=== PATIENT | male | born 1940 | race Caucasian/White ===

== ENCOUNTER 2017-12-06 08:53 | Inpatient (IN) | payer OTHER, MEDICARE ==
[~2017-12-06] VITALS: Ht 170.2 cm; Wt 96.1 kg
[~2017-12-06 08:53] MED LIST: ADULT LOW DOSE81 M1 PO; GLUCOPHAGE XR,500 MG PO; LOVASTATIN40 MG PO; MOVE FREE1 CAPSULE PO; OMEPRAZOLE40 M1 PO; PAIN RELIEF EX500 MG PO; PERCOCET 5/31 TABLET PO; ZESTORETIC,P1 TABLE1 PO
[2017-12-06 09:55] LABS: HEMATOCRIT 38.5 % (38.0-50.0); HEMOGLOBIN 13.3 G/DL (12.5-16.6); MCH 31.8 PG (29.0-34.0); MCHC 34.5 G/DL (30.0-36.0); MCV 92.1 FL (86-99); PLATELET COUNT 173 K/uL (156-360); RBC DIS.WIDTH-CV 12.5 % (11.8-14.6); RBC DIS.WIDTH-SD 42.2 % (39-53); RED BLOOD COUNT 4.18 M/uL (4.00-5.50); WHITE BLOOD COUNT 9.9 K/uL (4.1-10.2)
[2017-12-06 10:04] LABS: CHLORIDE 98 mEq/L (99-109); POTASSIUM 3.8 mEq/L (3.7-5.4)
[2017-12-06 10:05] LABS: SODIUM 137 mEq/L (136-147)
[2017-12-06 10:07] LABS: GLUCOSE 198 mg/dL (70-99); TOTAL PROTEIN 7.3 g/dL (6.4-8.3)
[2017-12-06 10:09] LABS: TOTAL BILIRUBIN 1.1 mg/dL (0.0-1.0)
[2017-12-06 10:10] LABS: ALKALINE PHOSPHATASE 50 IU/L (3-129); CREATININE 1.7 mg/dL (0.6-1.3); GFR ESTIMATE (CALCULATED) 42 mL/min/ (58.99-99999)
[2017-12-06 10:12] LABS: AST (GOT) 15 IU/L (2-34); UREA NITROGEN (BUN) 24 mg/dL (9-23)
[2017-12-06 10:13] LABS: ALT (GPT) 25 IU/L (3-49)
[2017-12-06 10:17] LABS: TROP-I INTERPRETATION NEGATIVE; TROPONIN-I < 0.01 ng/mL (0.0-0.30)
[2017-12-06] MEDS ORDERED: ZESTORETIC 20-1 EAC1 PO (14:52)
[2017-12-06] MEDS ORDERED: AMARYL4 MG PO (14:53)
[2017-12-06] MEDS ORDERED: B-COMPLEX-VITA1 EACH PO (14:53)
[2017-12-06] MEDS ORDERED: GLUCOSAMINE-CH1 EAC7 PO (14:56)
[2017-12-06 16:14] LABS: APPEARANCE CLEAR ((CLEAR)); BILIRUBIN NEGATIVE; BLOOD SMALL; COLOR YELLOW ((YELLOW)); GLUCOSE (STRIP) NEGATIVE; KETONES NEGATIVE; LEUKOCYTES NEGATIVE; NITRITE NEGATIVE; PROTEIN (STRIP) 30; SPECIFIC GRAVITY 1.014 (1.000-1.030); UROBILINOGEN 0.2 MG/DL (0.2-1.0)
[2017-12-06 16:17] LABS: BACTERIA RARE /HPF; EPITHELIAL CELLS RARE /HPF; MUCUS TRACE /LPF; RED BLOOD CELLS 0-5 /HPF (0-5); UCUL ADDED? NO; WHITE BLOOD CELLS 0-5 /HPF (0-5)
[2017-12-06 16:57] VITALS: BP 145/58
[2017-12-06 19:50] VITALS: BP 126/58
[2017-12-07 01:00] VITALS: BP 143/67
[2017-12-07 03:51] VITALS: BP 132/65
[2017-12-07 06:39] LABS: CHLORIDE 99 MEQ/L (99-109); GLUCOSE 127 mg/dL (70-99); POTASSIUM 3.8 MEQ/L (3.7-5.4); SODIUM 138 MEQ/L (136-147); UREA NITROGEN (BUN) 16 mg/dL (9-23)
[2017-12-07 06:45] LABS: BASOPHIL (%) 0.1 % (0-1); CREATININE 1.2 MG/DL (0.6-1.3); EOSINOPHIL (%) 0.1 % (0-5); HEMATOCRIT 31.4 % (38.0-50.0); IMMATURE GRANULOCYTE (%) 0.4 % (0.0-0.7); LYMPHOCYTE (%) 16.6 % (15-42); LYMPHOCYTE COUNT 1.3 K/uL (1.0-2.8); MCH 31.8 PG (29.0-34.0); MCHC 34.1 G/DL (30.0-36.0); MCV 93.2 FL (86-99); MONOCYTE (%) 14.5 % (3-12); MONOCYTE COUNT 1.1 K/uL (0-0.8); NEUTROPHIL (%) 68.3 % (45-76); NEUTROPHIL COUNT 5.2 K/uL (1.8-6.4); PLATELET COUNT 132 K/uL (156-360); RBC DIS.WIDTH-CV 12.4 % (11.8-14.6); RBC DIS.WIDTH-SD 42.1 % (39-53); RED BLOOD COUNT 3.37 M/uL (4.00-5.50); WHITE BLOOD COUNT 7.5 K/uL (4.1-10.2)
[2017-12-07 06:46] LABS: GFR ESTIMATE (CALCULATED) > 59 mL/min/ (58.99-99999)
[2017-12-07 06:48] LABS: HEMOGLOBIN 10.7 G/DL (12.5-16.6)
[2017-12-07 07:44] VITALS: BP 139/70
[2017-12-07 13:13] LABS: HEMOGLOBIN A1c (GLYCOHEMOGLOB) 7.5 % (Below 5.7)
[2017-12-07 14:57] VITALS: BP 140/72
[2017-12-08 00:21] VITALS: BP 131/66
[2017-12-08 06:25] LABS: BASOPHIL (%) 0.1 % (0-1); EOSINOPHIL (%) 0 % (0-5); HEMATOCRIT 31.4 % (38.0-50.0); HEMOGLOBIN 10.7 G/DL (12.5-16.6); IMMATURE GRANULOCYTE (%) 0.7 % (0.0-0.7); LYMPHOCYTE (%) 11.4 % (15-42); LYMPHOCYTE COUNT 0.8 K/uL (1.0-2.8); MCH 31.1 PG (29.0-34.0); MCHC 34.1 G/DL (30.0-36.0); MCV 91.3 FL (86-99); MONOCYTE (%) 7.4 % (3-12); MONOCYTE COUNT 0.5 K/uL (0-0.8); NEUTROPHIL (%) 80.4 % (45-76); NEUTROPHIL COUNT 5.5 K/uL (1.8-6.4); PLATELET COUNT 165 K/uL (156-360); RBC DIS.WIDTH-CV 12.1 % (11.8-14.6); RBC DIS.WIDTH-SD 40.5 % (39-53); RED BLOOD COUNT 3.44 M/uL (4.00-5.50); WHITE BLOOD COUNT 6.9 K/uL (4.1-10.2)
[2017-12-08 06:51] LABS: CHLORIDE 98 MEQ/L (99-109); CREATININE 1.2 MG/DL (0.6-1.3); GFR ESTIMATE (CALCULATED) > 59 mL/min/ (58.99-99999); POTASSIUM 4.3 MEQ/L (3.7-5.4); SODIUM 138 MEQ/L (136-147); UREA NITROGEN (BUN) 18 mg/dL (9-23)
[2017-12-08 07:05] LABS: GLUCOSE 290 mg/dL (70-99)
[2017-12-08 07:25] VITALS: BP 132/70
[2017-12-08 15:44] VITALS: BP 137/77
[2017-12-09 00:15] VITALS: BP 162/75
[2017-12-09 04:00] VITALS: BP 145/78
[2017-12-09 06:15] LABS: BASOPHIL (%) 0 % (0-1); EOSINOPHIL (%) 0.1 % (0-5); HEMATOCRIT 31.7 % (38.0-50.0); HEMOGLOBIN 10.6 G/DL (12.5-16.6); IMMATURE GRANULOCYTE (%) 0.9 % (0.0-0.7); LYMPHOCYTE (%) 11.4 % (15-42); LYMPHOCYTE COUNT 0.9 K/uL (1.0-2.8); MCH 30.5 PG (29.0-34.0); MCHC 33.4 G/DL (30.0-36.0); MCV 91.1 FL (86-99); MONOCYTE (%) 8.2 % (3-12); MONOCYTE COUNT 0.7 K/uL (0-0.8); NEUTROPHIL (%) 79.4 % (45-76); NEUTROPHIL COUNT 6.4 K/uL (1.8-6.4); PLATELET COUNT 202 K/uL (156-360); RBC DIS.WIDTH-CV 12.1 % (11.8-14.6); RBC DIS.WIDTH-SD 40.4 % (39-53); RED BLOOD COUNT 3.48 M/uL (4.00-5.50); WHITE BLOOD COUNT 8.1 K/uL (4.1-10.2)
[2017-12-09 06:42] LABS: CHLORIDE 98 MEQ/L (99-109); CREATININE 1.3 MG/DL (0.6-1.3); GFR ESTIMATE (CALCULATED) 57 mL/min/ (58.99-99999); GLUCOSE 258 mg/dL (70-99); SODIUM 138 MEQ/L (136-147); UREA NITROGEN (BUN) 27 mg/dL (9-23)
[2017-12-09 07:19] VITALS: BP 164/73
[2017-12-09] MEDS ORDERED: SPIRIVA RESPIMAT4 GM IH (11:52)
[2017-12-09] MEDS ORDERED: SYMBICORT60 INHALA1 IH (11:53)
[2017-12-09] MEDS ORDERED: LEVAQUIN750 MG PO (11:54)
[2017-12-09] MEDS ORDERED: DELTASONE20 M1 PO (11:54)
[2017-12-09] MEDS ORDERED: OMNICEF300 MG PO (12:27)
== END 2017-12-09 14:17 | disposition home or self-care (01) | DRG 190 ==
LOC: EME 08:53 → ENRESERV 15:06 → EDOF 15:06 → 5SOUTH 15:06 → ENRESERV 15:27 → 5SOUTH 16:46
PROVIDERS: Emergency Medicine; Hospitalist
DX: J44.0 Chronic obstructive pulmonary disease with (acute) lower respiratory infection (principal); J18.9 Pneumonia, unspecified organism; E11.22 Type 2 diabetes mellitus with diabetic chronic kidney disease; I12.9 Hypertensive chronic kidney disease with stage 1 through stage 4 chronic kidney disease, or unspecified chronic kidney disease; N18.3 Chronic kidney disease, stage 3 (moderate); Z87.891 Personal history of nicotine dependence; E78.5 Hyperlipidemia, unspecified; R09.02 Hypoxemia
CPT/HCPCS: 71046; 71250; 80048; 80053; 81003; 82948; 83036; 83605; 83880; 84484; 85025; 85027; 87040; 87449; 93005; 94640; 94664; 94799; 99281; 99285; J0456; J0696; J1644; J1815; J1956; J7512

== ENCOUNTER 2017-12-13 14:50 | Inpatient (IN) | payer OTHER, MEDICARE ==
[~2017-12-13] VITALS: Ht 177.8 cm; Wt 91.3 kg
[~2017-12-13 14:50] MED LIST changes: +AMARYL4 MG PO; +B-COMPLEX-VITA1 EACH PO; +DELTASONE20 M1 PO; +GLUCOSAMINE-CH1 EAC7 PO; +LEVAQUIN750 MG PO; +OMNICEF300 MG PO; +SPIRIVA RESPIMAT4 GM IH; +SYMBICORT60 INHALA1 IH; +ZESTORETIC 20-1 EAC1 PO
[2017-12-13 15:29] LABS: HEMATOCRIT 40.4 % (38.0-50.0); MCH 31.2 PG (29.0-34.0); MCHC 34.4 G/DL (30.0-36.0); MCV 90.8 FL (86-99); RBC DIS.WIDTH-CV 12.2 % (11.8-14.6); RBC DIS.WIDTH-SD 40.4 % (39-53)
[2017-12-13 15:30] LABS: CHLORIDE 92 mEq/L (99-109); POTASSIUM 3.6 mEq/L (3.7-5.4); SODIUM 136 mEq/L (136-147)
[2017-12-13 15:33] LABS: HEMOGLOBIN 13.9 G/DL (12.5-16.6); PLATELET COUNT 363 K/uL (156-360); RED BLOOD COUNT 4.45 M/uL (4.00-5.50)
[2017-12-13 15:36] LABS: CREATININE 1.6 mg/dL (0.6-1.3); GFR ESTIMATE (CALCULATED) 45 mL/min/ (58.99-99999); UREA NITROGEN (BUN) 24 mg/dL (9-23)
[2017-12-13 15:41] LABS: GLUCOSE 471 mg/dL (70-99); TROP-I INTERPRETATION NEGATIVE; TROPONIN-I < 0.01 ng/mL (0.0-0.30)
[2017-12-13] MEDS ORDERED: PAIN RELIEF EX500 MG PO (17:15)
[2017-12-13] MEDS ORDERED: OMEPRAZOLE40 M1 PO (17:16)
[2017-12-13] MEDS ORDERED: LITE COAT ASPI325 M1 PO (17:18)
[2017-12-13] MEDS ORDERED: SPIRIVA RESPIMAT4 GM IH (17:33)
[2017-12-13] MEDS ORDERED: SYMBICORT60 INHALA1 IH (17:34)
[2017-12-13] MEDS ORDERED: CEFDINIR300 MG PO (17:35)
[2017-12-13] MEDS ORDERED: LEVAQUIN750 MG PO (17:37)
[2017-12-13 18:34] LABS: HDL CHOLESTEROL 28 MG/DL (Desirable>=40); LDL CHOLESTEROL 31 mg/dL (Desirable<100); NON-HDL CHOLESTEROL 109 mg/dL (Desirable<160); TOTAL CHOLESTEROL 137 mg/dL (Desirable<200); TRIGLYCERIDES 390 MG/DL (Normal: <150)
[2017-12-13 19:59] VITALS: BP 171/79
[2017-12-13 21:27] LABS: TROP-I INTERPRETATION NEGATIVE; TROPONIN-I < 0.01 ng/mL (0.0-0.30)
[2017-12-14 00:17] VITALS: BP 144/83
[2017-12-14 05:04] VITALS: BP 141/62
[2017-12-14 05:51] LABS: HEMATOCRIT 34.4 % (38.0-50.0); MCH 30.4 PG (29.0-34.0); MCHC 32.8 G/DL (30.0-36.0); MCV 92.5 FL (86-99); PLATELET COUNT 283 K/uL (156-360); RBC DIS.WIDTH-CV 12.3 % (11.8-14.6); RBC DIS.WIDTH-SD 41.7 % (39-53); RED BLOOD COUNT 3.72 M/uL (4.00-5.50); WHITE BLOOD COUNT 8.1 K/uL (4.1-10.2)
[2017-12-14 05:52] LABS: HEMOGLOBIN 11.3 G/DL (12.5-16.6)
[2017-12-14 06:15] LABS: ALKALINE PHOSPHATASE 35 IU/L (3-129); ALT (GPT) 34 IU/L (3-49); AST (GOT) 20 IU/L (2-34); CHLORIDE 99 MEQ/L (99-109); CREATININE 1.3 MG/DL (0.6-1.3); GFR ESTIMATE (CALCULATED) 57 mL/min/ (58.99-99999); POTASSIUM 3.4 MEQ/L (3.7-5.4); TOTAL BILIRUBIN 0.3 MG/DL (0.0-1.0); TOTAL PROTEIN 5.5 G/DL (6.4-8.3); UREA NITROGEN (BUN) 23 mg/dL (9-23)
[2017-12-14 06:19] LABS: GLUCOSE 171 mg/dL (70-99); SODIUM 143 MEQ/L (136-147)
[2017-12-14 09:20] LABS: TROP-I INTERPRETATION NEGATIVE; TROPONIN-I < 0.01 ng/mL (0.0-0.30)
[2017-12-14 10:31] VITALS: BP 120/62
[2017-12-14 11:22] VITALS: BP 158/74
[2017-12-14] MEDS ORDERED: CEFDINIR300 MG PO (11:34)
[2017-12-15 12:23] LABS: HEMOGLOBIN A1c (GLYCOHEMOGLOB) 8.3 % (Below 5.7)
== END 2017-12-14 12:42 | disposition home or self-care (01) | DRG 313 ==
LOC: EME 14:50 → EDOF 16:45 → ENRESERV 16:48 → CANRESERV 16:48 → ENRESERV 16:50 → 4SOUTH 19:24 → ENPENDDIS 12-14 → 4SOUTH 12-14 12:42
PROVIDERS: Internal Medicine; Student in an Organized Health Care Education/Training Program
DX: R07.89 Other chest pain (principal); J18.9 Pneumonia, unspecified organism; I10 Essential (primary) hypertension; E78.5 Hyperlipidemia, unspecified; Z87.01 Personal history of pneumonia (recurrent); E11.65 Type 2 diabetes mellitus with hyperglycemia; I48.91 Unspecified atrial fibrillation; N17.9 Acute kidney failure, unspecified; E87.6 Hypokalemia; E66.9 Obesity, unspecified; Z68.28 Body mass index [BMI] 28.0-28.9, adult; R09.02 Hypoxemia
CPT/HCPCS: 71046; 71275; 80048; 80053; 80061; 82010; 82948; 83036; 83880; 84484; 85027; 85379; 93005; 94640; 94760; 94799; 99281; 99285; J1650; J1815; J7030; S0028

== ENCOUNTER 2017-12-24 17:19 | Observation (INO) | payer OTHER, MEDICARE ==
[~2017-12-24] VITALS: Ht 177.8 cm; Wt 87.6 kg
[~2017-12-24 17:19] MED LIST changes: +CEFDINIR300 MG PO; +LITE COAT ASPI325 M1 PO
[2017-12-24 18:29] LABS: BASOPHIL (%) 0.4 % (0-1); EOSINOPHIL (%) 1.1 % (0-5); EOSINOPHIL COUNT 0.1 K/uL (0-0.3); HEMATOCRIT 40.5 % (38.0-50.0); IMMATURE GRANULOCYTE (%) 0.4 % (0.0-0.7); LYMPHOCYTE (%) 35.5 % (15-42); MCH 31.3 PG (29.0-34.0); MCHC 34.6 G/DL (30.0-36.0); MCV 90.6 FL (86-99); MONOCYTE (%) 9.5 % (3-12); MONOCYTE COUNT 0.5 K/uL (0-0.8); NEUTROPHIL (%) 53.1 % (45-76); PLATELET COUNT 202 K/uL (156-360); RBC DIS.WIDTH-CV 12.5 % (11.8-14.6); RBC DIS.WIDTH-SD 41.3 % (39-53); RED BLOOD COUNT 4.47 M/uL (4.00-5.50); WHITE BLOOD COUNT 5.6 K/uL (4.1-10.2)
[2017-12-24 18:45] LABS: TROP-I INTERPRETATION NEGATIVE; TROPONIN-I < 0.01 ng/mL (0.0-0.30)
[2017-12-24 18:55] LABS: AMYLASE 45 IU/L (1-118); CHLORIDE 101 mEq/L (99-109); POTASSIUM 4.3 mEq/L (3.7-5.4); SODIUM 139 mEq/L (136-147)
[2017-12-24 18:56] LABS: GLUCOSE 101 mg/dL (70-99)
[2017-12-24 19:00] LABS: CREATININE 1.3 mg/dL (0.6-1.3); GFR ESTIMATE (CALCULATED) 57 mL/min/ (58.99-99999); SERUM ETHYL ALCOHOL < 10 mg/dL
[2017-12-24 19:01] LABS: UREA NITROGEN (BUN) 21 mg/dL (9-23)
[2017-12-24 19:03] LABS: LIPASE 12 U/L (1.0-51.0)
[2017-12-24 19:13] LABS: APPEARANCE CLEAR ((CLEAR)); BILIRUBIN NEGATIVE; BLOOD NEGATIVE; COLOR YELLOW ((YELLOW)); GLUCOSE (STRIP) NEGATIVE; KETONES NEGATIVE; LEUKOCYTES NEGATIVE; NITRITE NEGATIVE; PROTEIN (STRIP) NEGATIVE; SPECIFIC GRAVITY 1.019 (1.000-1.030); UCUL ADDED? NO; UROBILINOGEN 0.2 MG/DL (0.2-1.0)
[2017-12-24 19:28] LABS: AMPHETAMINE NEGATIVE (500 ng/mL); BARBITURATES NEGATIVE (200 ng/mL); BENZODIAZEPINES NEGATIVE (150 ng/mL); BUPRENORPHINE NEGATIVE (10 ng/mL); COCAINE NEGATIVE (150 ng/mL); METHADONE NEGATIVE (200 ng/mL); METHAMPHETAMINE NEGATIVE (500 ng/mL); OPIATES (MORPHINE) NEGATIVE (100 ng/mL); OXYCODONE NEGATIVE (100 ng/mL); PHENCYCLIDINE NEGATIVE (25 ng/mL); PROPOXYPHENE NEGATIVE (300 ng/mL); THC CANNABINOIDS NEGATIVE (50 ng/mL); TRICYCLIC ANTIDEPRESSANTS NEGATIVE (300 ng/mL)
[2017-12-24] MEDS ORDERED: GLUCOPHAGE XR,500 MG PO (20:58)
[2017-12-24 22:54] LABS: HDL CHOLESTEROL 38 MG/DL (Desirable>=40); LDL CHOLESTEROL 61 mg/dL (Desirable<100); NON-HDL CHOLESTEROL 109 mg/dL (Desirable<160); TOTAL CHOLESTEROL 147 mg/dL (Desirable<200); TRIGLYCERIDES 241 MG/DL (Normal: <150)
[2017-12-24 22:57] VITALS: BP 176/77
[2017-12-25 04:15] VITALS: BP 116/60
[2017-12-25 05:30] LABS: BASOPHIL (%) 0.4 % (0-1); EOSINOPHIL (%) 1.2 % (0-5); EOSINOPHIL COUNT 0.1 K/uL (0-0.3); HEMATOCRIT 36.6 % (38.0-50.0); HEMOGLOBIN 12.2 G/DL (12.5-16.6); IMMATURE GRANULOCYTE (%) 0.4 % (0.0-0.7); LYMPHOCYTE (%) 36.8 % (15-42); LYMPHOCYTE COUNT 1.9 K/uL (1.0-2.8); MCH 30.7 PG (29.0-34.0); MCHC 33.3 G/DL (30.0-36.0); MONOCYTE (%) 10.4 % (3-12); MONOCYTE COUNT 0.5 K/uL (0-0.8); NEUTROPHIL (%) 50.8 % (45-76); NEUTROPHIL COUNT 2.6 K/uL (1.8-6.4); PLATELET COUNT 210 K/uL (156-360); RBC DIS.WIDTH-CV 12.5 % (11.8-14.6); RBC DIS.WIDTH-SD 41.9 % (39-53); RED BLOOD COUNT 3.98 M/uL (4.00-5.50); WHITE BLOOD COUNT 5.2 K/uL (4.1-10.2)
[2017-12-25 06:52] LABS: CHLORIDE 99 MEQ/L (99-109); CREATININE 1.4 MG/DL (0.6-1.3); GFR ESTIMATE (CALCULATED) 52 mL/min/ (58.99-99999); POTASSIUM 3.8 MEQ/L (3.7-5.4); SODIUM 137 MEQ/L (136-147); UREA NITROGEN (BUN) 19 mg/dL (9-23)
[2017-12-25 06:56] LABS: GLUCOSE 221 mg/dL (70-99)
[2017-12-25 12:22] VITALS: BP 130/68
[2017-12-25 16:19] VITALS: BP 130/66
[2017-12-26 00:15] VITALS: BP 141/66
[2017-12-26 05:20] VITALS: BP 111/58
[2017-12-26 07:14] VITALS: BP 112/55
[2017-12-26 09:58] LABS: HEMOGLOBIN A1c (GLYCOHEMOGLOB) 8.6 % (Below 5.7)
[2017-12-26] MEDS ORDERED: LEVETIRACETAM500 MG PO (11:21)
[2017-12-26 11:52] VITALS: BP 107/55
== END 2017-12-26 15:50 | disposition home or self-care (01) ==
LOC: EME 17:19 → EDOF 21:22 → 4SOUTH 21:22 → EDOF 21:22 → ENRESERV 21:24 → 4SOUTH 22:53
PROVIDERS: Internal Medicine; Nurse Practitioner Family
PROC: B246ZZZ Ultrasonography of Right and Left Heart (ICD-10-PCS; principal; 2017-12-25)
DX: R56.9 Unspecified convulsions (principal); R47.81 Slurred speech; I10 Essential (primary) hypertension; E11.9 Type 2 diabetes mellitus without complications; R25.1 Tremor, unspecified; E78.5 Hyperlipidemia, unspecified; J44.9 Chronic obstructive pulmonary disease, unspecified; K21.9 Gastro-esophageal reflux disease without esophagitis; Z82.49 Family history of ischemic heart disease and other diseases of the circulatory system; Z87.891 Personal history of nicotine dependence; Z88.0 Allergy status to penicillin; Z79.82 Long term (current) use of aspirin; Z79.84 Long term (current) use of oral hypoglycemic drugs; Z87.01 Personal history of pneumonia (recurrent)
CPT/HCPCS: 70450; 70551; 71045; 80048; 80061; 81003; 82150; 82948; 83036; 83690; 84484; 85025; 85610; 85730; 86850; 86900; 86901; 92523 GN; 93005; 93306; 93880; 94640; 94799; 95819; 99281; 99285; G0378; G0480; G8999 GN CH; G9158 GN CH; G9186 GN CH; J1644; J1815